=== PATIENT | female | born 1990 | race Caucasian/White ===

== ENCOUNTER 2018-05-26 14:39 | Outpatient (CLI) | payer OTHER ==
[2018-05-26 17:12] LABS: HEMOGLOBIN A1C 6.2 % (0-5.9)
== END 2018-05-26 19:45 | disposition home or self-care (01) ==
LOC: OBT 14:39 → L-D 14:39 → OBT 19:45
DX: O40.3XX0 Polyhydramnios, third trimester, not applicable or unspecified (principal); O24.419 Gestational diabetes mellitus in pregnancy, unspecified control; Z3A.38 38 weeks gestation of pregnancy
CPT/HCPCS: 76815; 76818; 82962; 83036